=== PATIENT | female | born 1970 | race Caucasian/White ===

== ENCOUNTER → 2022-11-20 15:16 | Outpatient (CLI) | payer OTHER, SELFPAY ==
--- NOTE | ~2022-11-20 | US_ITS ---
US thyroid INDICATION: Disorder of the thyroid gland. TECHNIQUE: Real-time sonographic images of the thyroid gland were obtained. COMPARISON: No prior studies for comparison. FINDINGS: The right thyroid lobe measures 5.6 x 2.4 x 2.2 cm. The left thyroid lobe measures 4.9 x 2 .4 x 2.2 cm. There is heterogeneous echotexture and echogenicity throughout the thyroid gland. No dis crete nodules identified. Increased vascular flow is present. IMPRESSION: 1. Heterogeneous thyroid without discrete nodule with mildly increased vascularity. Reviewed, dictated and finalized at location B. [facility]DER IMPRESSION: 1. Heterogeneous thyroid without discrete nodule with mildly increased vascula rity.
== END ==
PROVIDERS: PCP Registered Nurse; Visit Provider Nurse Practitioner
DX: E07.9 Disorder of thyroid, unspecified (principal)
CPT/HCPCS: 76536

== ENCOUNTER 2023-12-21 12:15 | Outpatient (CLI) | payer OTHER, SELFPAY ==
--- NOTE | 2023-12-21 12:30 | ECG_ITS ---
Measurements Intervals [place] Rate: 62 P: 31 OK: 138 QRS: 61 QRSD: 97 T: 38 QT: 397 QTc: 405 Interpretive Statements SINUS RHYTHM INCOMPLETE RIGHT BUNDLE BRANCH BLOCK BASELINE ARTIFACT- I, II, III, AVR, AVL, AVF BORDERLINE ECG NO PREVIOUS ECG AVAILABLE FOR COMPARISON Electronically Signed On 12-21-2023 12:44:09 CDT by Jean Pierre Joiner D.O.
[2023-12-21 12:51] LABS: Hematocrit 41.4 % (37.0-47.0); Hemoglobin 13.3 g/dL (12.0-15.0)
== END 2023-12-21 12:16 | disposition home or self-care (01) ==
LOC: ANHSURGERY 12:19
PROVIDERS: PCP Physician Assistant; Visit Provider Obstetrics & Gynecology Gynecology
DX: N81.6 Rectocele (principal); Z87.891 Personal history of nicotine dependence; Z01.818 Encounter for other preprocedural examination; I45.10 Unspecified right bundle-branch block
CPT/HCPCS: 36415; 85014; 85018; 86850; 86900; 86901; 93005

== ENCOUNTER 2023-12-24 00:25 | Day surgery (SDC) | payer OTHER, SELFPAY ==
[2023-12-17 17:43] VITALS: BMI 23.7
--- NOTE | 2023-12-17 18:04 | PC.NURSE ---
Report to the Outpatient Waiting Room, entrance under the green pavilion located off [facility], at 0600 on 12-24-23. Planned Procedure Time: 0730. Time changes happen often and if your time is changed the preop area will call you the afternoon before. - You and your visitor will be asked to self-screen and do not enter if you have any COVID symptoms. - A mask is optional within the hospital at this time. Patients may have clear liquids (water, carbonated beverages, clear teas, apple juice) until 3 hours prior to surgery with a maximum of 20 ounces. 0430 - No food from midnight until time of surgery - Infants may have breast milk until 4 hours before surgery, formula 6 hours prior to surgery. - Children will be allowed to drink immediately following surgery. If applicable, please bring a bottle or sippy cup to assist with drinking. Juice, water, soda, and popsicles are readily available. For infants on formula, please bring formula the day of surgery. Pacifiers are allowed. Take the following medications with a SIP of water the morning of surgery: levothyroxine, liothyronine DO NOT STOP ANY OF YOUR OTHER PRESCRIPTION MEDICATIONS PRIOR TO SURGERY ?EXCEPT THE FOLLOWING Medications to discontinue per physician: Vitamins and supplements Date to take last dose: 12-21-23 Please no make-up, nail qatari, hairspray, perfume, deodorant, or body powder the day of surgery. No jewelry (including any body piercings) or valuables the day of surgery, leave them at home. Please take a shower or bath the night before, or the morning of, surgery with an antibacterial soap. Wear comfortable, loose fitting clothing. Children are encouraged to wear pajamas. - Jewelry must be removed prior to entering the operating room. Rings and piercings that are not removed may be cut off. - The hospital will not accept responsibility for valuables. - Please leave all valuables, including medications, at home the day of surgery. If you are going home after surgery, a licensed [place] driver must drive you home. - NO public transportation without another adult if you receive anesthesia. - We recommend that an adult stay with you for 24 hours following discharge. - We also recommend that you do not drive, make important decision, drink alcoholic beverages, or take any drugs that were not prescribed by your health care provider for at least 24 hours after your discharge time. For Pediatric surgeries, we recommend two adults accompany the child home. Follow any additional instructions given to you from your surgeon. If you or anyone in your household have experienced Covid symptoms in the past week, please notify your surgeon or the nurse liaison at the phone number below for possible testing. Telephone instructions given Essence Crockett to and asked if any additional questions and then verbalized understanding. Patient advised to call surgeon office or pre surgery nurse liaison [phone] if any additional questions.
[2023-12-24] VITALS (11 sets, daily range): BP systolic 92–116; BP diastolic 58–68; PULSE 48–64; RESP 13–20; TEMP 36.1–37.2; O2SAT 99–100
--- NOTE | 2023-12-24 06:18 | P.PNAN_ITS ---
Anes - Initial Pre Proc Eval Procedure: Operation Date: 12/24/23 07:30 Proposed Procedures p Posterior Vaginal Repair - Leonora Sanderson MD Date/Time: 12/24/23 06:18 Surgeon: Leonora Sanderson MD Pre Op Diagnosis: rectocele Patient Data Age: 53 Gender: F Height: 1.83 m Weight: 79.38 kg Allergies Allergy/AdvReac Type Severity Reaction Status Date / Time No Known Allergies Allergy Verified 12/24/23 06:37 Home Medications Medication Instructions Recorded Confirmed Type Lactobacillus 1 cap PO DAILY 12/17/23 12/24/23 History acidophilus-Bifidobac.animalis 2.5 billion cell capsule (Daily Probiotic) diphenhydramine 25 2 tablet PO HS PRN pain/sleep 12/17/23 12/24/23 History mg-acetaminophen 500 mg tablet (Tylenol PM Extra Strength) estradiol 1 mg tablet 1 mg PO HS 12/17/23 12/24/23 History levothyroxine 175 mcg tablet 175 mcg PO DAILY 12/17/23 12/24/23 History liothyronine 5 mcg tablet 5 mcg PO DAILY 12/17/23 12/24/23 History multivit with minerals-iron 18 1 tablet PO DAILY 12/17/23 12/24/23 History mg-folic ac 400 mcg-vit K 25 mcg tablet (Adults Multivitamin) pantoprazole 40 mg tablet,delayed 40 mg PO DAILY 12/17/23 12/24/23 History release progesterone micronized 100 mg 100 mg PO HS 12/17/23 12/24/23 History capsule Patient hx anesthesia problems: none Family hx anesthesia problems: none Results Review: All pre-operative results and documents have been reviewed as part of the pre- operative evaluation. [facility] Past Medical History Medical History (Updated 12/24/23 @ 06:19 by Henry Strange DO) Townsend esophagus Hypothyroidism Surgical History Surgical History (Updated 12/24/23 @ 06:19 by Henry Strange DO) History of cholecystectomy History of tubal ligation Hx of fusion of cervical spine Social History Social History Smoking packs per day: 1 Smoking cigarettes per day: 20.0 Years smoked: 20 Smoking pack-years: 20.00 Smoking status: Former smoker Tobacco type: cigarettes Second hand tobacco smoke exposure: No Smoking end date: 09/24/18 Alcohol intake: never Substance use: never Substance use type: does not use Living arrangements: with family Spiritual care concerns: No Anes - Eval Final PreProcedure Day of Procedure 12/24/23 06:18 Patient weight: normal Heart: regular rate and rhythm Lungs: clear to auscultation and normal air movement Airway: Mallampati scale class II Neurological: alert and oriented Last oral intake: >/= 8 hours ASA classification: II Emergent: no Anesthetic plan: proceed Anesthesia type and monitoring: general LMA and standard monitoring Results Review: All pre-operative results and documents have been reviewed as part of the pre- operative evaluation. Informed Consent: The patient's anesthetic plan and its attendant risks and benefits were discussed with the patient/family/POA. Questions were solicited and answers provided to the satisfaction of the patient/family/POA.
[2023-12-24] MEDS: LACTATED RINGERS 1,000 ML 30 ML IV CONT ×2 (06:30→08:35)
[2023-12-24] MEDS: KETOROLAC 15 MG/ML VIAL (*BKC) IV PUSH (06:31)
[2023-12-24] MEDS: ACETAMINOPHEN 500 MG TABLET 1000 MG PO (06:31)
--- NOTE | 2023-12-24 07:13 | WPDHPUPDATE1 ---
History and Physical Update Update Date/Time: 12/24/23 07:13 History and Physical has been reviewed, including an updated exam of the patient. There are NO changes in the patient's condition. Risks, benefits, and alternatives have been discussed and questions answered. Patient agrees to proceed with procedure.
--- NOTE | 2023-12-24 07:13 | PM.IMHP ---
H&P: HPI History of Present Illness Date/Time: 12/24/23 07:13 Chief Complaint: Rectocele Narrative: The patient is a 53-year-old with symptomatic rectocele. Patient declined pessary use and wishes to proceed with surgical repair. Risks of infection, bleeding, injury to the rectum, and failure over time were discussed with the patient. She voices understanding and agrees to proceed. The patient has been cleared for surgery physician from a thyroid standpoint. Review of Systems Review of Systems: not repeated day of surgery; patient states no changes in status PMFSH Past Medical History Medical History (Updated 12/24/23 @ 07:18 by Leonora Sanderson MD) Townsend esophagus Hypothyroidism (normal spontaneous vaginal delivery) x2 Surgical History Surgical History (Updated 12/24/23 @ 07:17 by Leonora Sanderson MD) History of back surgery 2010 and 1993 History of cholecystectomy History of elbow surgery History of endometrial ablation History of hysteroscopy History of loop electrical excision procedure (LEEP) History of total vaginal hysterectomy History of tubal ligation Hx of fusion of cervical spine 2018 Social History Social History Smoking packs per day: 1 Smoking cigarettes per day: 20.0 Years smoked: 20 Smoking pack-years: 20.00 Smoking status: Former smoker Tobacco type: cigarettes Second hand tobacco smoke exposure: No Smoking end date: 09/24/18 Alcohol intake: never Substance use: never Substance use type: does not use Living arrangements: with family Spiritual care concerns: No Meds Home Medications and Allergies Home Medications Medication Instructions Recorded Confirmed Type Lactobacillus 1 cap PO DAILY 12/17/23 12/24/23 History acidophilus-Bifidobac.animalis 2.5 billion cell capsule (Daily Probiotic) diphenhydramine 25 2 tablet PO HS PRN pain/sleep 12/17/23 12/24/23 History mg-acetaminophen 500 mg tablet (Tylenol PM Extra Strength) estradiol 1 mg tablet 1 mg PO HS 12/17/23 12/24/23 History levothyroxine 175 mcg tablet 175 mcg PO DAILY 12/17/23 12/24/23 History liothyronine 5 mcg tablet 5 mcg PO DAILY 12/17/23 12/24/23 History multivit with minerals-iron 18 1 tablet PO DAILY 12/17/23 12/24/23 History mg-folic ac 400 mcg-vit K 25 mcg tablet (Adults Multivitamin) pantoprazole 40 mg tablet,delayed 40 mg PO DAILY 12/17/23 12/24/23 History release progesterone micronized 100 mg 100 mg PO HS 12/17/23 12/24/23 History capsule Allergies Allergy/AdvReac Type Severity Reaction Status Date / Time No Known Allergies Allergy Verified 12/24/23 06:37 Vital Signs Vital Signs - 24 hr 12/24/23 06:11 Temperature 98.2 F Pulse Rate 64 Respiratory Rate 18 Blood Pressure 116/67 Pulse Oximetry 100 Oxygen Delivery Room Air Exam Const: General: healthy appearing and alert Orientation/consciousness: patient oriented x3 Resp: Effort & Inspection: normal respiratory effort GI: GI Palp: Yes Soft to palpation, No Tenderness to palpation present (GI) and No Palpable mass present : External Female Exam: normal external appearance Speculum Exam - Vagina: normal vaginal discharge and other ( third-degree rectocele) Speculum Exam - Cervix: Cervix absent Bimanual exam- vagina & uterus: uterus absent Bimanual Exam- Adnexa, other: normal adnexae and No adnexal tenderness Neuro: General: patient oriented x3 Assessment and Plan Assessment and plan (1) Rectocele: Code(s): N81.6 - Rectocele Status: Acute Assessment and Plan: plan to proceed with posterior vaginal repair
[2023-12-24] MEDS: ceFAZolin 2 GM/D5W 50 ML 2 GM/50 ML BAG IVPB (07:30)
[2023-12-24] MEDS: LIDO 1%/EPINEPHRINE 1:100,000 20 ML VIAL INFILTRATE (08:04)
--- NOTE | 2023-12-24 08:29 | P.OP_ITS ---
Procedure Note - Detailed Date of Procedure 12/24/23 Pre-op Diagnosis rectocele Post-op Diagnosis Same ( plus enterocele) Procedure Performed posterior vaginal repair enterocele repair Surgeon Leonora Sanderson MD Anesthesia General Findings large posterior rectocele off midline to the patient's right large enterocele Description of Procedure The patient was taken to the operating room and placed under anesthesia in the dorsal lithotomy position. She was prepped and draped in the usual sterile fashion. A Maggi retractor was placed anteriorly. The midline vaginal mucosa was injected with 1% lidocaine with epinephrine. The hymenal ring was grasped at 5 and 7:00 with Allis clamps. The intervening tissue was incised with a scalpel and a triangular portion of perineal skin excised. The vaginal mucosa is dissected off in the midline with Metzenbaum scissors undermining the tissue. As each portion is dissected off of the rectocele the mucosa is incised in the midline and the edges grasped with Allis clamps. As dissection continued a la rge enterocele was encountered. Dissection continued in the same manner until the apex of the enterocele was reached. The vaginal mucosa was then grasped in the midline with an Allis clamp. The lateral portions of the enterocele and rectocele are dissected off using sharp and blunt dissection. The enterocele and rectocele are then reduced using 0 Ethibond in interrupted horizontal mattress sutures. Once the reduction is complete the excess vaginal mucosa was excised using a Metzenbaum scissors. The vaginal mucosa was closed using 0 Vicryl in a running locked fashion until the hymenal ring was reached. The suture was then placed below the hymenal ring and the perineal body was closed in a deep layer followed by the skin being closed in the subcuticular layer there is a small area of bleeding mucosa in the middle of the incision that required an additional [id number] suture. Vaginal packing coated with Premarin cream was then placed in the vagina. Roberson catheter was left in place. The patient was taken to recovery in stable condition. Sponge, needle, and instrument counts are correct per the OR staff. Patient received Ancef prior to incision. Estimated Blood Loss 25 Drains Yes ( Roberson catheter) Packing Yes ( vaginal packing) Pathology None sent Complications No immediate complications Condition Stable Disposition PACU
[2023-12-24] MEDS: fentaNYL CITRATE INJ (*CRX) 100 MCG/2 ML VIAL 25 MCG IV PUSH ×4 (09:19→09:32)
--- NOTE | 2023-12-24 10:44 | ADMGEN ---
0955-This patient, Essence Crockett, was admitted to OB 2nd Floor Room 289-00. Patient/family oriented to hospital policies and general routines including ID bracelet, bed and alarms, visiting hours, pain management, procedures, bathroom and other care routines, personal items, smoking policy, room service/diet, and visiting hours. Information on how to activate the Rapid Response Team has been discussed. Patient/Family are encouraged to report perceived risks to care and to ask questions if they do not understand what they are told or what they should do.
[2023-12-24] MEDS: DEXTROSE 5%/LACTATED RINGERS 1,000 ML 125 ML IV CONT (11:05)
[2023-12-24] MEDS: HYDROcodone/acetaminophen (*CRX) 10-325 MG TABLET 1 TAB PO (12:36)
[2023-12-24] MEDS: SIMETHICONE 80 MG TAB.CHEW PO ×2 (12:38→16:41)
[2023-12-24] MEDS: PANTOPRAZOLE 40 MG TABLET PO (12:38)
[2023-12-24] MEDS: IBUPROFEN 600 MG TABLET PO ×2 (12:38→19:22)
[2023-12-24] MEDS: DOCUSATE SODIUM 100 MG CAPSULE PO (16:39)
[2023-12-24] MEDS: HYDROcodone/acetaminophen (*CRX) 5-325 MG TABLET 1 TAB PO ×2 (19:22→23:20)
[2023-12-24] MEDS: estradioL 1 MG TABLET PO (20:59)
[2023-12-25] MEDS: HYDROcodone/acetaminophen (*CRX) 5-325 MG TABLET 1 TAB PO (04:34)
[2023-12-25] MEDS: IBUPROFEN 600 MG TABLET PO (04:35)
[2023-12-25 04:36] VITALS: BP 92/63; PULSE 54; RESP 18; TEMP 36.7; O2SAT 100
[2023-12-25] MEDS: LIOTHYRONINE SODIUM 5 MCG TABLET PO (06:41)
[2023-12-25] MEDS: LEVOTHYROXINE SODIUM 50 MCG TABLET PO (06:41)
[2023-12-25] MEDS: LEVOTHYROXINE SODIUM 125 MCG TABLET PO (06:42)
[2023-12-25 06:46] VITALS: BP 90/57; PULSE 55; RESP 16; TEMP 37.3; O2SAT 99
--- NOTE | 2023-12-25 07:42 | WPDANESPN ---
Anes - Prog Note Post-Op Date/Time: 12/25/23 07:42 Cardiovascular status: normal Respiratory status: normal Airway patency: baseline Mental status: baseline Post-Op hydration status: normal Vital Signs: Last Vital Signs Temp 99.2 F 12/25/23 06:46 Pulse 55 L 12/25/23 06:46 Resp 16 12/25/23 06:46 BP 90/57 L 12/25/23 06:46 Pulse Ox 99 12/25/23 06:46 O2 Del Method Room Air 12/24/23 10:00 O2 Flow Rate 6 12/24/23 08:50 Pain Score (VAS): 0/10 I/O: Intake & Output 12/24/23 12/24/23 12/25/23 15:59 23:59 07:59 Intake Total 1764.6 1354.2 1200 Output Total 2050 1750 1200 Balance -285.4 -395.8 0 Post-procedural complaints: none Patient Feedback: Patient satisfied with anesthetic care.
--- NOTE | 2023-12-25 07:44 | PM.GYNPNOP ---
GATE TENDER - A/P Postoperative Procedures: Procedures Operation Date: 12/24/23 07:30 Actual Procedure Side Surgeon p Posterior Vaginal Repair, enterocele repair Not Applicable Leonora Sanderson MD Postoperative day: 1 Postoperative status: doing well Postoperative plan: routine post-op care and discharge Time Spent With Patient Time: Total time spent is greater than 50% in coordination of care (as documented) at patient's floor/unit and/or counseling patient: Time with patient: less than 15 minutes GATE TENDER- PN:Subj Post-Op Subjective Date/time seen: 12/25/23 07:44 Subjective: patient has no complaints, pain is well controlled (minimal pain) and patient is tolerating oral intake Exam Narrative: abdomen soft, nt GATE TENDER - PN: Obj Data Vital Signs Vital Signs: Vital Signs - 24 hr 12/24/23 08:35 12/24/23 08:50 12/24/23 09:05 Temperature 96.9 F L Pulse Rate 61 53 L 53 L Respiratory Rate 13 18 16 Blood Pressure 106/58 L 102/59 L 105/66 Pulse Oximetry 100 100 100 Oxygen Delivery Simple Face Mask Simple Face Mask Room Air Oxygen Flow Rate 6 6 12/24/23 09:20 12/24/23 09:35 12/24/23 09:45 Temperature 97.7 F Pulse Rate 58 L 52 L 53 L Respiratory Rate 18 14 14 Blood Pressure 96/61 L 92/68 L 92/62 L Pulse Oximetry 100 100 99 Oxygen Delivery Room Air Room Air Room Air Oxygen Flow Rate 12/24/23 10:00 12/24/23 10:00 12/24/23 14:00 Temperature 98.2 F 98.9 F Pulse Rate 48 L 48 L 55 L Respiratory Rate 18 18 16 Blood Pressure 93/63 L 95/62 L Pulse Oximetry 100 100 100 Oxygen Delivery Room Air Oxygen Flow Rate 12/24/23 19:00 12/24/23 23:20 12/25/23 04:36 Temperature 98.2 F 98.0 F 98.1 F Pulse Rate 53 L 49 L 54 L Respiratory Rate 20 18 18 Blood Pressure 100/60 97/58 L 92/63 L Pulse Oximetry 99 100 100 Oxygen Delivery Oxygen Flow Rate 12/25/23 06:46 Temperature 99.2 F Pulse Rate 55 L Respiratory Rate 16 Blood Pressure 90/57 L Pulse Oximetry 99 Oxygen Delivery Oxygen Flow Rate Intake/Output Intake/Output: Intake & Output 03/30/24 03/31/24 04/01/24 04/02/24 23:59 23:59 23:59 23:59 Intake Total 3118.8 1200 Output Total 3800 1200 Balance -681.2 0 Meds/Results Medications: Active Medications Generic Name Dose Route Start Last Admin Trade Name Freq PRN Reason Stop Dose Admin Acetaminophen 1,000 mg 12/24/23 09:49 Acetaminophen 500 Mg Tablet PO Q6H PRN Mild Pain (1-3) or Fever Hydrocodone Bitart/Acetaminophen 1 tab 12/24/23 09:49 12/25/23 04:34 Hydrocodone/Acetaminophen (*Crx) 5-325 Mg Tablet PO 1 tab Q3H PRN Administration Pain Rated 5 or Less Hydrocodone Bitart/Acetaminophen 1 tab 12/24/23 09:49 12/24/23 12:36 Hydrocodone/Acetaminophen (*Crx) 10-325 Mg Tablet PO 1 tab Q3H PRN Administration Pain Rated 6 or Greater Docusate Sodium 100 mg 12/24/23 09:49 12/24/23 16:39 Docusate Sodium 100 Mg Capsule PO 100 mg BID ARABELLA Administration Estradiol 1 mg 12/24/23 21:00 12/24/23 20:59 Estradiol 1 Mg Tablet PO 1 mg HS ARABELLA Administration Dextrose/Lactated Ringer's 1,000 mls @ 125 mls/hr 12/24/23 09:49 12/25/23 06:56 Dextrose 5%/Lactated Ringers IV CONT Not Given .Q8H ARABELLA Ibuprofen 600 mg 12/24/23 09:49 12/25/23 04:35 Ibuprofen 600 Mg Tablet PO 600 mg Q6H PRN Administration Cramping Ketorolac Tromethamine 30 mg 12/24/23 09:49 Ketorolac 30 Mg/Ml Vial (*Bkc) IV PUSH 12/29/23 09:48 Q6H PRN Pain Rated 4-6 Levothyroxine Sodium 50 mcg 12/25/23 06:30 12/25/23 06:41 Levothyroxine Sodium 50 Mcg Tablet PO 50 mcg DAILY@0630 ARABELLA Administration Levothyroxine Sodium 125 mcg 12/25/23 06:30 12/25/23 06:42 Levothyroxine Sodium 125 Mcg Tablet PO 125 mcg DAILY@0630 ARABELLA Administration Liothyronine Sodium 5 mcg 12/24/23 09:49 12/25/23 06:41 Liothyronine Sodium 5 Mcg Tablet PO 5 mcg DAILY ARABELLA Administration Miscellaneous Information
--- NOTE | 2023-12-25 07:46 | PM.DS ---
DS: Admitting Diagnosis Discharge Date 12/25/23 Admitting Diagnosis rectocele DS: Discharge Diagnosis Discharge Diagnosis Plan s/p posterior vaginal repair and enterocele repair DS: Summary Hospital Course Hospital Course: At the time of discharge, patient tolerating diet, voiding, and ambulating. Status at Discharge Functional status at discharge: independent ambulation Overall status at discharge: patient is progressing back to baseline Time Spent with Patient Time attestation: Total time spent providing and/or coordinating discharge services: Discharge Plan Discharge Attending physician on discharge: Leonora Sanderson Discharging Clinician: Leonora Sanderson Patient Disposition: Home, Self-Care Stand Alone Forms: General Discharge Instructions Follow-up/Referrals: Leonora Sanderson MD [Physician] - 1 Week Discharge Medications: New hydrocodone-acetaminophen 5-325 mg tablet 1 tablet PO Q4H PRN (Reason: pain) Qty: 10 0RF Continued levothyroxine 175 mcg tablet 175 mcg PO DAILY liothyronine 5 mcg tablet 5 mcg PO DAILY pantoprazole 40 mg tablet,delayed release (DR/EC) 40 mg PO DAILY estradiol 1 mg tablet 1 mg PO HS progesterone micronized 100 mg capsule 100 mg PO HS Adults Multivitamin 18 mg iron-400 mcg-25 mcg Tablet 1 tablet PO DAILY Daily Probiotic 2.5 billion cell Capsule 1 cap PO DAILY diphenhydramine-acetaminophen [Tylenol PM Extra Strength] 25-500 mg Tablet 2 tablet PO HS PRN (Reason: pain/sleep) Attending physician on admission: Leonora Sanderson
[2023-12-25] MEDS: PANTOPRAZOLE 40 MG TABLET PO (08:16)
[2023-12-25] MEDS: DOCUSATE SODIUM 100 MG CAPSULE PO (08:16)
[2023-12-25] MEDS: SIMETHICONE 80 MG TAB.CHEW PO (08:16)
--- NOTE | 2023-12-25 08:30 | PC.NURSE ---
Pt explained that she had been coughing a bit. Gave patient an incentive spirometer to take home along with instruction on how to use properly.
== END 2023-12-25 09:10 | disposition home or self-care (01) ==
LOC: ANHSURGERY 06:06 → ANHOB2 09:57
PROVIDERS: PCP Physician Assistant; Visit Provider Obstetrics & Gynecology Gynecology
PROC: (CPT 57260; principal; 2023-12-24 07:30)
DX: N81.6 Rectocele (principal); N81.5 Vaginal enterocele; K22.70 Barrett's esophagus without dysplasia; E03.9 Hypothyroidism, unspecified; Z98.890 Other specified postprocedural states; Z98.1 Arthrodesis status; Z90.49 Acquired absence of other specified parts of digestive tract; Z87.891 Personal history of nicotine dependence
CPT/HCPCS: 57250; 57268; 36415; 85014; 85018; 86850; 86900; 86901; 93005; 99199; A9270; J0690; J1100; J1596; J1885; J2250; J2405; J2704; J3010; J7120; J7121